=== PATIENT | male | born 1990 | race Caucasian/White ===

== ENCOUNTER 2022-08-06 13:43 | Emergency (ER) | payer SELFPAY ==
[2022-08-06] MEDS ORDERED: LORTAB 1010 MG PO (23:14)
[2022-08-06] MEDS ORDERED: AMOXICILLIN500 MG PO (23:14)
== END 2022-08-06 14:25 | disposition home or self-care (01) | DRG 951 ==
LOC: ED 13:43 → LWOBS 14:24
DX: Z53.21 Procedure and treatment not carried out due to patient leaving prior to being seen by health care provider (principal)

== ENCOUNTER 2022-08-06 20:46 | Emergency (ER) | payer SELFPAY ==
[2022-08-06] MEDS ORDERED: AMOXICILLIN500 MG PO (23:14)
[2022-08-06] MEDS ORDERED: LORTAB 1010 MG PO (23:14)
[2022-08-06 23:42] VITALS: BP 130/88
== END 2022-08-06 23:51 | disposition home or self-care (01) | DRG 563 ==
LOC: ED 20:46
DX: S62.631A Displaced fracture of distal phalanx of left index finger, initial encounter for closed fracture (principal); S61.211A Laceration without foreign body of left index finger without damage to nail, initial encounter; W23.0XXA Caught, crushed, jammed, or pinched between moving objects, initial encounter